=== PATIENT | female | born 1990 | race Two or more races ===

== ENCOUNTER 2021-11-01 16:51 | Emergency (ER) | payer OTHER ==
[2021-11-01 17:00] VITALS: BP 131/81
--- NOTE | 2021-11-01 17:10 | ED Physician Documentation ---
PD HPI CHEST PAIN - Stated complaint Stated Complaint: CHEST PX - Chief complaint Chief Complaint: Cardiac - History obtained from History obtained from: Patient - Additional information Additional information: Otherwise healthy 31-year-old woman with no possibility of developed sharp left-sided anterior nonradiating chest pain that lasted 2 minutes while sitting at her desk this morning. Its been intermittent ever since and worsens with taking a deep breath but is not exertional. No shortness of breath, calf pain or pedal edema. Review of Systems Constitutional: denies: Fever, Chills Cardiac: reports: Chest pain / pressure. denies: Palpitations Respiratory: denies: Dyspnea, Cough PD PAST MEDICAL HISTORY - Past Medical History Past Medical History: No - Present Medications Home Medications: Ambulatory Orders Medication Instructions Recorded Confirmed No Known Home Medications 11/01/21 11/01/21 - Allergies Allergies/Adverse Reactions: Allergies Allergy/AdvReac Type Severity Reaction Status Date / Time amoxicillin Allergy Rash Verified 11/01/21 17:00 PD ED PE NORMAL - Vitals Vital signs reviewed: Yes - General General: Alert and oriented X 3, No acute distress - HEENT HEENT: PERRL, EOMI - Neck Neck: Supple, no meningeal sign, No bony TTP - Cardiac Cardiac: RRR, No murmur - Respiratory Respiratory: No respiratory distress, Clear bilaterally - Abdomen Abdomen: Normal bowel sounds, Non tender - Back Back: No CVA TTP, No spinal TTP - Derm Derm: Normal color, Warm and dry - Extremities Extremities: No edema, No calf tenderness / cord - Neuro Neuro: Alert and oriented X 3, Normal speech Results - Vitals Vitals: Vital Signs - 24 hr 11/01/21 16:56 Temperature 36.6 C Heart Rate 74 Respiratory 20 Rate Blood Pressure 131/81 H O2 Saturation 100 Oxygen O2 Source Room air - EKG (time done) 1659 Rate: Rate (enter#) (70) Rhythm: NSR Davey: Normal Intervals: Normal HI QRS: Normal Ischemia: Normal ST segments - Labs Labs: Laboratory Tests 11/01/21 11/01/21 11/01/21 17:12 17:12 17:12 WBC 7.9 RBC 3.95 L Hgb 12.2 Hct 36.6 L MCV 92.7 MCH 30.9 MCHC 33.3 RDW 13.0 Plt Count 237 MPV 9.7 Neut # (Auto) 4.5 Lymph # (Auto) 2.7 Villalba # (Auto) 0.5 Eos # (Auto) 0.1 Baso # (Auto) 0.0 Absolute Nucleated RBC 0.00 Nucleated RBC % 0.0 Sodium 136 Potassium 3.6 Chloride 100 L Carbon Dioxide 24 Anion Gap 12.0 BUN 9 Creatinine 0.7 Estimated GFR (MDRD) 97 Glucose 88 Calcium 9.2 Total Bilirubin 0.3 AST 22 ALT 14 Alkaline Phosphatase 64 Troponin I High Sens < 2.3 L Total Protein 7.6 Albumin 4.5 Globulin 3.1 Albumin/Globulin Ratio 1.5 Lipase 32 PD MEDICAL DECISION MAKING - ED course ED course: PERC negative, heart score 0 Departure - Departure Disposition: 01 Home, Self Care Clinical Impression: Chest pain Qualifiers: Chest pain type: precordial pain Qualified Code(s): R07.2 - Precordial pain Condition: Good Record reviewed to determine appropriate education?: Yes Instructions: ED Chest Pain Atypical Unkn Cause Comments: Cardiac enzymes, EKG, chest x-ray all normal. Return if you worsen or if the pain changes. Ibuprofen per package instructions as needed for pain. Follow-up with your primary care physician, next available appointment.
[2021-11-01 17:20] LABS: BASOPHILS % (AUTO) 0.5 %; EOSINOPHILS # (AUTO) 0.1 10^3/uL (0.0-0.7); EOSINOPHILS % (AUTO) 0.8 %; HCT - HEMATOCRIT 36.6 % (37.0-47.0); HGB - HEMOGLOBIN 12.2 g/dL (12.0-16.0); LYMPHOCYTES # (AUTO) 2.7 10^3/uL (1.5-3.5); LYMPHOCYTES % (AUTO) 34.4 %; MEAN CORPUSCULAR HEMOGLOBIN 30.9 pg (27.0-31.0); MEAN CORPUSCULAR HGB CONC 33.3 g/dL (32.0-36.0); MEAN CORPUSCULAR VOLUME 92.7 fL (81.0-99.0); MEAN PLATELET VOLUME 9.7 fL (7.9-10.8); MONOCYTES # (AUTO) 0.5 10^3/uL (0.0-1.0); MONOCYTES % (AUTO) 6.7 %; NEUTROPHILS # (AUTO) 4.5 10^3/uL (1.5-6.6); NEUTROPHILS % (AUTO) 57.5 %; PLT - PLATELET COUNT 237 10^3/uL (130-450); RED BLOOD COUNT 3.95 10^6/uL (4.20-5.40); WHITE BLOOD COUNT 7.9 x10^3/uL (4.8-10.8)
--- NOTE | 2021-11-01 17:22 | XRAY Report ---
PROCEDURE: Chest 1 View X-Ray INDICATIONS: Chest Pain TECHNIQUE: One view of the chest was acquired. COMPARISON: None. FINDINGS: Surgical changes and devices: None. Lungs and pleura: No pleural effusions or pneumothorax. Lungs are clear. Mediastinum: Mediastinal contours appear normal. Heart size is normal. Bones and chest wall: No suspicious bony lesions. Overlying soft tissues appear unremarkable. IMPRESSION: Chest without acute cardiopulmonary abnormalities. No focal airspace disease. Reviewed by: Maurice Franco MD on 11/01/2021 5:21 PM PDT Approved by: Maurice Franco MD on 11/01/2021 5:21 PM PDT Station ID: [id number]
[2021-11-01 17:43] LABS: ALBUMIN 4.5 g/dL (3.2-5.5); ALBUMIN/GLOBULIN RATIO 1.5 (1.0-2.2); BILIRUBIN,TOTAL 0.3 mg/dL (0.2-1.0); CALCIUM 9.2 mg/dL (8.5-10.3); CREATININE 0.7 mg/dL (0.4-1.0); POTASSIUM 3.6 mmol/L (3.5-5.0); TOTAL PROTEIN 7.6 g/dL (6.7-8.2)
== END 2021-11-01 18:13 | disposition home or self-care (01) ==
LOC: ED 16:51
DX: R07.2 Precordial pain (principal)
CPT/HCPCS: 36415; 80053; 83690; 84484; 85025; 93005; 99284

== ENCOUNTER 2022-08-01 15:55 | Outpatient (CLI) | payer OTHER ==
--- NOTE | 2022-08-01 18:04 | Ultrasound Report ---
PROCEDURE: Pelvic w/Transvaginal INDICATIONS: PELVIC PAIN TECHNIQUE: Real-time scanning was performed of the pelvic organs, with image documentation. Additional endovagi nal scanning was necessary due to incomplete visualization of the adnexal and endometrial structures by transabdominal scanning. COMPARISON: None. FINDINGS: Uterus: Uterus is anteverted and normal in size at 7.1 x 2.8 x 4.2 cm. The myometrium is homogeneou s. The endometrium measures 11.5 mm in combined thickness. No fibroids noted. Ovaries: The right ovary measures 3.9 x 2.5 x 3.3 cm, with a calculated ovarian volume of 16.7 cc. The left ovary measures 2.6 x 1.6 x 3.6 cm, with a calculated ovarian volume of 7.9 cc. The ovaries have a normal sonographic appearance. Less than 12 follicles can be seen in each ovary. No adnexal masses are seen. There is intraovarian flow bilaterally. Other: No pathologic free abdominal or pelvic fluid. IMPRESSION: Unremarkable pelvic ultrasound. Reviewed by: Alexander Syed MD on 08/01/2022 6:02 PM PDT Approved by: Alexander Syed MD on 08/01/2022 6:02 PM PDT Station ID: [id number]
== END 2022-08-01 15:56 | disposition home or self-care (01) ==
LOC: DI 15:55
PROVIDERS: ATTEND Obstetrics & Gynecology
DX: R10.2 Pelvic and perineal pain (principal); N83.291 Other ovarian cyst, right side

== ENCOUNTER 2022-11-18 08:00 | Outpatient (CLI) | payer OTHER | END 2022-11-18 23:59 | disposition home or self-care (01) | LOC: LAB.N 08:00 | PROVIDERS: ATTEND Physician Assistant Medical | DX: L02.224 Furuncle of groin (principal) | CPT/HCPCS: 87255 ==